=== PATIENT | male | born 1955 | race Caucasian/White ===

== ENCOUNTER 2017-10-03 20:44 | Emergency (ER) | payer MEDICARE, OTHER, SELFPAY ==
[2017-10-03 21:03] VITALS: BP 170/87; PULSE 74; RESP 14; TEMP 36.6; O2SAT 94; BMI 20.7
--- NOTE | 2017-10-03 21:10 | DI.CT.S_ITS ---
PROCEDURE: CT HEAD/BRAIN WO CON INDICATIONS: h/o hemmoragic stroke x 2. Now w/ htn. TECHNIQUE: Noncontrast 4.5 mm thick angled axial sections acquired from the foramen magnum to the vertex, with coronal and sagittal reformats. For radiation dose reduction, the following was used: automated exposure control, adjustment of mA and/or kV according to patient size. COMPARISON: None. FINDINGS: Image quality: Excellent. CSF spaces: Basal cisterns are patent. No extra-axial fluid collections. The ventricles are symmetric in size and shape. Brain: There is old lacunar infarct in chris. No intracranial bleeds or masses. There is mild cerebral volume loss for age, with resultant ventricular and sulcal prominence. There are mild periventricular and deep white matter chronic small vessel ischemic changes. There is intracranial internal carotid artery atherosclerosis. Skull and face: Calvarium and visualized facial bones appear intact, without suspicious lesions. Sinuses: Visualized sinuses and mastoids are clear. IMPRESSION: 1. No acute intracranial abnormalities. 2. Old lacunar infarct in chris. 3. Mild cerebral volume loss and microvascular ischemic changes. Dictated by: Breana Kam M.D. on 10/03/2017 at 21:26 Approved by: Breana Kam M.D. on 10/03/2017 at 21:30
[2017-10-03 22:33] VITALS: BP 188/86; PULSE 69
--- NOTE | 2017-10-03 22:59 | ED.GENADULT ---
HPI - General Adult General Chief complaint: Hypertension Stated complaint: HIGH BLOOD PRESSURE Time Seen by Provider: 10/03/17 22:59 Source: patient Mode of arrival: ambulatory Limitations: no limitations History of Present Illness HPI narrative: The patient arrives with vomiting and high blood pressure. He has a prior history of CVA, apparently associated with hypertension. He denies confusion, focal weakness or numbness. He has no visual changes. He has mild nausea. His blood pressures in the 180 systolic range upon arrival. He cannot tell me his medications, but he is compliant with medications. He has had no diarrhea associated with the nausea and vomiting. He currently denies abdominal pain. He has renal failure. He lives in [place] and is visiting locally, and has made arrangements to receive dialysis Thursday, Thursday and Thursday. he has been compliant with dialysis. He denies fever or chills with current symptoms. Related Data Previous Rx's Medication Instructions Recorded ondansetron [Zofran ODT] 4 mg PO Q4H PRN #10 tab 10/04/17 Allergies Allergy/AdvReac Type Severity Reaction Status Date / Time No Known Drug Allergies Allergy Verified 10/03/17 21:07 Review of Systems Review of Systems All systems reviewed & are unremarkable except as noted in HPI and below Constitutional Denies chills, Denies fever(s), Denies lethargy and Denies weakness Eyes Denies change in vision and Denies loss of vision ENT Ears, Nose, Mouth, and Throat: Denies sore throat Cardiovascular Denies chest pain, Denies diaphoresis, Denies syncope, Denies rapid heart rate, Denies edema and Denies dyspnea Respiratory Denies chest congestion, Denies cough and Denies dyspnea Gastrointestinal Gastrointestinal: Denies abdominal pain, Denies melena, Denies heartburn, Denies diarrhea and Reports vomiting Genitourinary Reports other ( No symptoms) Musculoskeletal Denies back pain Integumentary/Breasts Denies pruritus, Denies erythema, Denies rash and Denies wounds Neurologic Denies syncope, Denies loss of vision and Denies weakness PFSH Medical History CVA (cerebral vascular accident) (Acute) Hypertension (Acute) Renal failure (Acute) Social History Smoking Status: Current every day smoker Exam Initial Vital Signs Initial Vital Signs: Vital Signs Temperature 98 F 10/03/17 21:03 Pulse Rate 74 10/03/17 21:03 Respiratory Rate 14 10/03/17 21:03 Blood Pressure 170/87 H 10/03/17 21:03 Pulse Oximetry 94 10/03/17 21:03 Const General: cooperative and well developed Nutritional Appearance: well nourished Orientation: alert, awake, oriented x3 and not confused [facility] Head: normocephalic and atraumatic Mouth: oral mucosae normal and moist mucous membranes Throat: posterior oropharynx normal Eyes Conjunctivae: conjunctivae normal Neck Neck: normal visual inspection, trachea midline, No lymphadenopathy, midline deformity and No JVD Lymphatic: No lymphadenopathy Chest Chest: normal inspection of the chest Resp Effort & Inspection: normal respiratory effort and able to speak in complete sentences Auscultation: clear to auscultation bilaterally, no rales, no rhonchi and no wheezes Cardio Rate: regular rate Rhythm: regular rhythm Heart Sounds: S1 normal, S2 normal, no click, no gallops, no murmurs and no rubs Pulses: normal peripheral pulses GI Inspection: normal to inspection and non-distended Palpation: soft, no hepatosplenomegaly, No guarding, No pulsatile mass and No tender Auscultation: normal bowel sounds Back/Spine/Pelvis Back: No CVA tenderness Skin General: no rashes or lesions noted Neuro General: alert, oriented x3, gait normal and no focal motor deficits Speech: speech normal Scores NIH Stroke Scale Level of Conciousness: Alert, keenly responsive Ask month/age: Answers both questions correctly. Open/close eyes, close hand: Performs both tasks correctly Best gaze horizontal: Normal Visual wolf: No visual loss Facial palsy: Normal symetrical movement Left arm drift: No drift for full 10 sec Right arm drift: No drift for full 10 sec Left leg drift: No drift for full 10 sec Right leg drift: No drift for full 10 sec Limb ataxia: Absent Sensory on face/arms/legs: Normal, no sensory loss Best language: No aphasia, normal Dysarthria: Normal Extinction or inattention: No abnormality Total NIH Stroke scale score: 0 Course Orders Ordered: ED Orders 10/03/17 21:10 CT head/brain wo con Stat 10/03/17 23:11 Complete Blood Count AUTO DIFF Stat Comprehensive Metabolic Panel Stat Lipase Stat Discontinued Medications Hydralazine HCl (Apresoline) 10 mg IV NOW ONE Stop: 10/03/17 23:09 Last Admin: 10/03/17 23:25 Dose: 10 mg Hydralazine HCl (Apresoline) 10 mg IV NOW ONE Stop: 10/03/17 23:57 Last Admin: 10/04/17 00:00 Dose: 10 mg Ondansetron HCl (Zofran) 4 mg IV NOW ONE Stop: 10/03/17 23:09 Last Admin: 10/03/17 23:23 Dose: 4 mg Vital Signs - 8 hr 10/03/17 21:03 10/03/17 22:33 10/03/17 23:38 Temperature 98 F Pulse Rate 74 69 88 Respiratory Rate 14 16 Blood Pressure 170/87 H Blood Pressure [Right Arm] 188/86 H 186/162 H Pulse Oximetry 94 97 10/04/17 00:00 Temperature Pulse Rate 88 Respiratory Rate Blood Pressure 170/95 H Blood Pressure [Right Arm] Pulse Oximetry Medical Decision Making MDM Narrative Medical decision making narrative: The patient's blood pressure improved to 151/86 With medications. He has no chest pain, visual changes or headache. Nausea and vomiting have subsided. He feels better. Head CT is normal, no evidence of CVA. Lab Data Result diagrams: 10/03/17 23:11 10/03/17 23:11 Lab Results 10/03/17 10/03/17 Range/Units 23:11 23:11 WBC 4.6 (4.5-11.0) X10^3/uL RBC 2.84 L (4.5-5.9) X10^6/uL Hgb 9.4 L (13.5-17.5) g/dL Hct 27.6 L (41-53) % MCV 97.1 (80-100) fL MCH 33.0 (26-34) PG MCHC 34.0 (30-36) % RDW 13.8 (11.6-14.8) % Plt Count 133 L (150-400) X10^3/uL Neut % (Auto) 76.2 H (50-75) % Lymph % (Auto) 9.4 L (25-40) % [place] % (Auto) 10.7 (3-14) % Eos % (Auto) 2.6 (2-4) % Baso % (Auto) 1.1 (0-2) % Neut # (Auto) 3500 (8192-3429) /uL Sodium 142 (137-145) mmol/L Potassium 4.1 (3.4-5.1) mmol/L Chloride 93 L (98-107) mmol/L Carbon Dioxide 35 H (22-32) mmol/L BUN 35 H (9-20) mg/dL Creatinine 6.00 H (0.66-1.25) mg/dL Estimated GFR 9.6 L (>60) mL/min BUN/Creatinine Ratio 5.8 L (6-22) Glucose 93 (80-110) mg/dL Calcium 9.5 (8.4-10.2) mg/dL Total Bilirubin 0.6 (0.2-1.3) mg/dL AST 15 L (17-59) IU/L ALT 17 L (21-72) IU/L Alkaline Phosphatase 42 (38-126) U/L Total Protein 6.3 (6.3-8.2) g/dL Albumin 4.0 (3.5-5.0) g/dL Globulin 2.3 (1.7-4.1) g/dL Albumin/Globulin Ratio 1.7 (1.0-2.8) Lipase 595 H (23-300) U/L Imaging Data CT scan - head: Radiologist's impression: Old lacunar infarct in the chris, no acute findings. ECG Data Attestation: I personally reviewed and interpreted this ECG as follows: ( EKG: Normal sinus rhythm rate 66 bpm. LVH with strain pattern. Prolonged QT, measuring 459. no acute ST or T-wave changes.) Discharge Plan Departure Patient Disposition: Home, Self-Care Clinical Impression: Hypertension, Mild nausea and vomiting Instructions: DI for Vomiting -- Adult Activity Restrictions/Additional Instructions: Zofran every 4 hr as needed for nausea. Be sure your drinking an appropriate amount of fluids. Follow through with dialysis as scheduled. If her blood pressure remains elevated, contact her physician. If he cannot control your blood pressure even with her physicians help, return here. Prescriptions: New ondansetron [Zofran ODT] 4 mg tablet,disintegrating 4 mg PO Q4H PRN (Reason: nausea and vomiting) Qty: 10 RF: 0
[2017-10-03 23:14] LABS: Add Manual Diff / Slide Review NO; Basophils Percent Auto 1.1 % (0-2); Eosinophils Percent Auto 2.6 % (2-4); Hematocrit 27.6 % (41-53); Hemoglobin 9.4 g/dL (13.5-17.5); Lymphocytes Percent Auto 9.4 % (25-40); Mean Corpuscular Volume 97.1 fL (80-100); Monocytes Percent Auto 10.7 % (3-14); Neutrophils Absolute Auto 3500 /uL (3000-5900); Neutrophils Percent Auto 76.2 % (50-75); Platelet Count 133 X10^3/uL (150-400); Red Blood Cell Count 2.84 X10^6/uL (4.5-5.9); Red Cell Distribution Width 13.8 % (11.6-14.8); White Blood Cell Count 4.6 X10^3/uL (4.5-11.0)
[2017-10-03] MEDS: ONDANSETRON 4 MG/2 ML INJ IV (23:23)
[2017-10-03 23:25] LABS: Alanine Aminotransferase 17 IU/L (21-72); Albumin Globulin Ratio 1.7 (1.0-2.8); Alkaline Phosphatase 42 U/L (38-126); Aspartate Aminotransferase 15 IU/L (17-59); BUN Creatinine Ratio 5.8 (6-22); Bilirubin Total 0.6 mg/dL (0.2-1.3); Blood Urea Nitrogen 35 mg/dL (9-20); Calcium 9.5 mg/dL (8.4-10.2); Carbon Dioxide 35 mmol/L (22-32); Chloride 93 mmol/L (98-107); Estimated Glomerular Filt Rate 9.6 mL/min (>60); Globulin 2.3 g/dL (1.7-4.1); Glucose 93 mg/dL (80-110); HEMOLYSIS < 15 (0-50); Lipase 595 U/L (23-300); Potassium 4.1 mmol/L (3.4-5.1); Sodium 142 mmol/L (137-145); Total Protein 6.3 g/dL (6.3-8.2)
[2017-10-03] MEDS: HYDRALAZINE 20 MG/ML VIAL 10 MG IV (23:25)
[2017-10-03 23:38] VITALS: BP 186/162; PULSE 88; RESP 16; O2SAT 97
--- NOTE | 2017-10-03 23:42 | PC.NURSE ---
Arrived to see pt in bed lying flat. Daugther and report pt has HTN with meds and BP increasing over the course of the day. H/o hem stroke x 2 with last one 05/2017. Pt eyes are closed. responding to verbal, has jerking motions which family report is normal for him. Reports he was crabbing today and ever since being on the boat he has been chilled and unable to get warm covered in warm blankets, pt is afebrile. BP trending in the high 180's systolic. dialysis pt with last tx yesterday (thursday). [place]. Family reports he has been taking all his meds as he should. Pt denies all pain including CP and SOB.
[2017-10-04 00:28] VITALS: BP 158/71; PULSE 77; RESP 16; TEMP 36.6; O2SAT 97
[2017-10-04 00:29] VITALS: BP 158/71; PULSE 77
[2017-10-04] MEDS: ONDANSETRON 4 MG ODT PREPACK 1 BOTTLE MISC (00:31)
== END 2017-10-04 00:40 | disposition home or self-care (01) ==
PROVIDERS: Emergency Provider Emergency Medicine
DX: I10 Essential (primary) hypertension (principal); R11.2 Nausea with vomiting, unspecified; Z86.73 Personal history of transient ischemic attack (TIA), and cerebral infarction without residual deficits
CPT/HCPCS: 36591; 70450; 80053; 83690; 85025; 93005; 93010; 93041; 96374; 96375; 96376; 99283; 99284; 99291; J0360; J2405